=== PATIENT | male | born 1965 | race Two or more races ===

== ENCOUNTER 2024-06-12 16:26 | Emergency (ER) | payer MEDICAID, OTHER ==
[~2024-06-12] VITALS: Ht 182.9 cm; Wt 88.6 kg
[2024-06-12 16:35] VITALS: BP 125/71; PULSE 91; RESP 18; O2SAT 98
== END 2024-06-12 17:07 | disposition left against medical advice (07) ==
LOC: ER 16:26
DX: R06.02 Shortness of breath (principal); Z53.21 Procedure and treatment not carried out due to patient leaving prior to being seen by health care provider